=== PATIENT | male | born 1955 | race Hispanic/Latino ===

== ENCOUNTER 2019-02-09 08:40 | Day surgery (SDC) | payer MEDICAID ==
[2019-02-09] VITALS (7 sets, daily range): BP systolic 90–122; BP diastolic 51–71
[~2019-02-09] VITALS: Ht 172.7 cm; Wt 104.3 kg
[~2019-02-09 08:40] MED LIST: SODIUM CHLORIDE 0.9% 1000ML 1,000 ML IV ONE
[2019-02-09] MEDS ORDERED: ESOM40CA PO (09:45)
[2019-02-09] MEDS ORDERED: LIDOCAINE HCL 1% 20 ML VIAL ONE (10:08)
[2019-02-09] MEDS ORDERED: PROPOFOL 10 MG/ML 20ML VIAL IV ONE (10:08)
--- NOTE | 2019-02-09 11:00 | NUR ---
dc pt dc home via [place], no distress noted,pt denied any pain or discomfort. pt accompanied by son
== END 2019-02-09 11:00 | disposition home or self-care (01) ==
LOC: DAH 08:40 → ENDO 08:40
PROVIDERS: ATTEND Internal Medicine Gastroenterology
DX: K59.00 Constipation, unspecified (principal); D12.3 Benign neoplasm of transverse colon; K57.30 Diverticulosis of large intestine without perforation or abscess without bleeding; I10 Essential (primary) hypertension; E78.00 Pure hypercholesterolemia, unspecified; Z79.899 Other long term (current) drug therapy; Z98.890 Other specified postprocedural states; Z82.49 Family history of ischemic heart disease and other diseases of the circulatory system
CPT/HCPCS: 45380; 45385; 88305; A4215; A4221; A4222; A4223; A4606; A4615; A4663; J2704; J7030